=== PATIENT | female | born 1980 | race Hispanic/Latino ===

== ENCOUNTER 2018-03-18 20:25 | Observation (INO) | payer BC, OTHER ==
[2018-03-18 21:07] LABS: Bilirubin Small (Negative); Blood, Urine Trace (Negative); Glucose, Urine (Dipstick) Negative (Negative); Leukocyte Negative (Negative); Nitrite Negative (Negative); Protein, Urine (Dipstick) Trace mg/dL (Neg-Trace)
[2018-03-18 21:10] LABS: Clarity Hazy (Clear)
[2018-03-18 21:12] LABS: Bacteria/HPF Rare-Few HPF (None Seen); RBC/HPF 0-3 HPF (0-3)
[2018-03-18 21:13] LABS: Yeast-AUWi Flag 37.7 (0-25.0)
[2018-03-18 21:20] LABS: #Basophils 0.1 thou/uL (0.0-0.2); #Eosinphils 0.1 thou/uL (0.0-0.7); #Lymphocytes 2.2 thou/uL (1.20-3.40); #Monocytes 0.6 thou/uL (0.11-0.59); #Neutrophils 5.9 thou/uL (1.40-6.50); %Basophils 0.8 % (0.0-1.0); %Eosinophils 1.5 % (0.0-10.0); %Lymphocytes 24.4 % (21.0-51.0); %Monocytes 6.6 % (0.0-10.0); %Neutrophils 66.8 % (42.0-75.0); Hemoglobin 12.5 g/dL (12.0-16.0); Mean Corpuscular HGB CONC 34.8 g/dL (32.0-36.0); Mean Corpuscular Hemoglobin 30.3 pg (27.0-31.0); Mean Corpuscular Volume 87.2 fL (78.0-98.0); Platelet Count 311 thou/uL (130-400); RBC Distribution Width 11.2 % (11.5-14.5); Red Blood Cell (RBC) Count 4.13 mill/uL (4.20-5.40); White Blood Cell (WBC) Count 8.8 thou/uL (4.8-10.8)
[2018-03-18 21:21] LABS: Crystals/HPF None Seen HPF (Negative); Hyaline Casts/LPF 0-3 HYALINE CAST LPF (0-3 Hyaline); Yeast-All Forms None Seen HPF (None Seen)
[2018-03-18 21:41] LABS: ALT (SGPT) 14 U/L (8-55); AST (SGOT) 16 U/L (5-34); Alkaline Phosphatase 118 U/L (40-150); Anion Gap 13 mmol/L (10-20); BUN (Urea Nitrogen) 7 mg/dL (7.0-18.7); Bilirubin, Total 0.4 mg/dL (0.2-1.2); Calc. Creatinine Clearance 0 mL/min (70-130); Calcium 8.4 mg/dL (7.8-10.44); Carbon Dioxide 23 mmol/L (22-29); Chloride 104 mmol/L (98-107); Estimated GFR-MDRD Greater than 90; Globulin 3.3 g/dL (2.4-3.5); Glucose 113 mg/dL (70-105); Potassium 3.6 mmol/L (3.5-5.1); Protein, Total 7.3 g/dL (6.0-8.3); Sodium 136 mmol/L (136-145)
[2018-03-18 22:30] LABS: Pregnancy Test - Urine (BHCG) Negative (Negative); Pregu Control Background? CLEAR/WHITE (CLR/WHITE); Pregu Control Bar Appear? YES (CONTROL BAR)
--- NOTE | 2018-03-18 22:57 | ULT ---
GALLBLADDER ULTRASOUND: 03/18/18 HISTORY: Right upper quadrant pain. COMPARISON: None. TECHNIQUE: Utilizing a multihertz transducer, sonographic imaging of the right upper quadrant is performed in th e longitudinal and transverse plane. FINDINGS: There is increased echogenicity of the liver which may be due to hepatic steatosis or hepatocellular disease. Subsequent vascular hepatic masses and intrahepatic biliary dilatation is limited. Right hep atic lobe measures 16.2 cm. Suboptimal evaluation of the pancreas. Right kidney has a normal cortical echotexture. No hydronephrosis. Right kidney measures 4.7 x 4.0 x 9.9 cm. Common bile duct diameter is 0.5 cm. Gallbladder wall is thickened. There are multiple echogenic foci with shadowing in the lumen of the g allbladder. There is a positive Crowell's sign. No significant pericholecystic fluid. IMPRESSION: Sonographic evidence of cholecystitis and cholelithiasis. POS: FRITZ
[2018-03-18] MEDS ORDERED: Ondansetron HCl/PF 4 MG/2 ML Vial ONE (23:26)
[2018-03-18] MEDS ORDERED: Morphine 4 MG/ML VIAL ONE (23:26)
[2018-03-19] MEDS ORDERED: cefTRIAXone\\ROCEPHIN 1 GM VIAL ONE (00:04)
[2018-03-19] MEDS ORDERED: Morphine 4 MG/ML VIAL SLOW IVP PRN (01:18)
[2018-03-19] MEDS ORDERED: Ondansetron HCl/PF 4 MG/2 ML Vial IVP PRN ×2 (01:19→17:35)
[2018-03-19] MEDS ORDERED: Ondansetron ODT 4 MG TAB SL PRN (01:19)
[2018-03-19] MEDS ORDERED: Sodium Chloride 0.9% 1,000 ML IV SCH (01:30)
[2018-03-19] MEDS ORDERED: hydrALAZINE 20 MG/ML VIAL SLOW IVP PRN (06:59)
[2018-03-19] MEDS ORDERED: Morphine 4 MG/ML Carpuject IVP PRN (06:59)
[2018-03-19] MEDS ORDERED: Ondansetron ODT 8 MG TAB SL PRN (07:02)
[2018-03-19] MEDS ORDERED: Ketorolac Tromethamine 30 MG/ML VIAL IVP PRN (07:02)
[2018-03-19] MEDS ORDERED: Acetaminophen 1,000 MG in Premix Bag 1 BAG IVPB PRN (07:02)
[2018-03-19] MEDS ORDERED: Morphine 4 MG/ML VIAL IV PRN (07:15)
[2018-03-19] MEDS ORDERED: Acetaminophen 1,000 MG in Premix Bag 1 BAG IVPB SCH (07:15)
[2018-03-19] MEDS ORDERED: Ketorolac Tromethamine 30 MG/ML VIAL IVP SCH (07:15)
[2018-03-19] MEDS: Sodium Chloride 0.9% 1,000 ML IV SCH ×2 (07:21→10:36)
--- NOTE | 2018-03-19 07:37 | HP ---
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 In the emergency room, her white count was 8, hemoglobin 12. Basic metabolic profile, liver function tests are normal. Ul trasound obtained revealed multiple gallstones, common bile duct 5 mm, changes of cholecystitis noted . Positive sonographic Crowell sign. ALLERGIES: None. SOCIAL HISTORY: Tobacco none. Alcohol none. MEDICATIONS: None. PAST SURGICAL HISTORY: C-sections. PAST MEDICAL HISTORY: Noncontributory. REVIEW OF SYSTEMS: Ten point noncontributory. FAMILY HISTORY: Negative. PHYSICAL EXAMINATION: VITAL SIGNS: 202 pounds, 98 degrees, 84, 18, 113/65. HEENT: Unremarkable. Sclerae nonicteric. LUNGS: Clear to auscultation. CARDIAC: Regular rate and rhythm without murmur or gallop. ABDOMEN: Soft, tenderness in right upper quadrant with guarding in right upper quadrant, positive Mu rphy sign. EXTREMITIES: Unremarkable. No ankle edema. Palpable pedal pulses. Cranial nerves intact, neurolog ically intact. No focal deficits. LYMPH: No lymphadenopathy in neck, axilla or groins. SKIN: Nonjaundiced. Good turgor. ASSESSMENT AND PLAN: Cholecystitis and cholelithiasis. I have recommended laparoscopic video cholec ystectomy. Risks of infection, bleeding, visceral biliary injury discussed. Questions answered.
[2018-03-19] MEDS ORDERED: Scopolamine 1.5 mg/72 hour Patch TD SCH (09:00)
[2018-03-19] MEDS ORDERED: Lidocaine 1% PF 5 ML VIAL ONE (14:10)
[2018-03-19] MEDS ORDERED: Dexamethasone 20 MG/5 ML VIAL ONE (14:10)
[2018-03-19] MEDS ORDERED: Glycopyrrolate 0.2 MG/ML 5 ML SYRINGE ONE (14:10)
[2018-03-19] MEDS ORDERED: Ondansetron HCl/PF 4 MG/2 ML Vial ONE (14:10)
[2018-03-19] MEDS ORDERED: PROPOFOL 200 MG/20 ML VIAL ONE (14:10)
[2018-03-19] MEDS ORDERED: Ketorolac Tromethamine 30 MG/ML VIAL ONE (15:52)
[2018-03-19] MEDS ORDERED: Bupivacaine HCl 0.5%/Epinephrine 1:200,000/PF 30 ml Vial ONE (16:08)
[2018-03-19] MEDS ORDERED: Fentanyl 100 MCG/2 ML VIAL ONE (16:10)
[2018-03-19] MEDS ORDERED: Midazolam HCl 2 mg/2 ml Vial ONE (16:10)
[2018-03-19] MEDS ORDERED: Ibuprofen 600 MG TAB PO PRN (16:35)
[2018-03-19] MEDS ORDERED: traMADol HCl 50 MG TAB PO PRN ×2 (16:35)
[2018-03-19] MEDS ORDERED: Acetaminophen 500 MG TAB PO PRN (16:35)
[2018-03-19] MEDS ORDERED: Promethazine HCl 25 MG/ML VIAL IM PRN (17:35)
[2018-03-19] MEDS ORDERED: Promethazine HCl 25 MG/ML VIAL SLOW IVP PRN (17:35)
[2018-03-19] MEDS ORDERED: Enoxaparin Sodium 40 MG/0.4 ML SYRINGE SC SCH (21:00)
--- NOTE | 2018-03-19 23:55 | OP ---
DATE OF PROCEDURE: 03/19/2018 PREOPERATIVE DIAGNOSES: Acute cholecystitis, cholelithiasis. POSTOPERATIVE DIAGNOSES: Acute cholecystitis, cholelithiasis. PROCEDURE: Laparoscopic video cholecystectomy. SURGEON: Rudy Jones M.D. ANESTHESIA: General. Local of 0.5% Marcaine with epinephrine, 30 mL total volume used. FINDINGS: Acute cholecystitis, multiple large stones. PROCEDURE IN DETAIL: The patient was taken to the operating room under general anesthesia, abdomen w as prepared with ChloraPrep, draped in routine fashion. Local anesthetic infiltrated into the skin a nd subcutaneous tissue about each port site. Infraumbilical incision made and pneumoperitoneum to 15 mmHg obtained with the Veress needle, replacing with a 5 port and video laparoscope inserted. Right subxiphoid incision made and 11 port placed. Right subcostal incision made mid clavicular anterior axillary lines and 5 ports placed. Gallbladder was full of stones. Liver appeared to be normal. Fu ndus of gallbladder grasped and reflected cephalad. Infundibulum grasped and reflected laterally. C ystic artery and duct dissected free. Critical view obtained. Cystic artery and duct doubly clipped proximally, divided, and gallbladder dissected free from liver bed obtaining good hemostasis prior t o division of final peritoneal attachments. Gallbladder and contents removed and submitted to Pathol ogy. Multiple stones were retrieved and submitted. Good hemostasis ensured with the cautery. Irrig ant and pneumoperitoneum evacuated. All instruments removed and all skin incisions approximated with an interrupted subdermal 4-0 Monocryl and DermaGlue applied.
--- NOTE | 2018-03-20 02:16 | DIS ---
DATE OF ADMISSION: 03/18/2018 DATE OF DISCHARGE: 03/19/2018 DISCHARGE DIAGNOSIS: Acute chronic cholecystitis. PROCEDURE: Laparoscopic video cholecystectomy. HISTORY: A 37-year-old female with history of biliary colic, presents with intolerable episode, pres ented to the emergency room. Ultrasound verifying gallstones, normal liver function tests. Received intravenous antibiotics overnight, taken to the operating room for laparoscopic cholecystectomy afte r which she was discharged home. DISCHARGE INSTRUCTIONS: Follow up in my office in 2-3 weeks. Diet and activity as tolerated. No li fting restrictions. Sent home with tramadol prescription #22 refills, and instructed to take Tylenol and Motrin for pain otherwise.
[2018-03-20 07:54] VITALS: BP 127/86; TEMP 98.3
== END 2018-03-20 07:54 | disposition home or self-care (01) ==
LOC: ERS 20:25 → SURG B 23:49
PROVIDERS: ADMIT Specialist; ATTEND Specialist
PROC: 0FT44ZZ Resection of Gallbladder, Percutaneous Endoscopic Approach (ICD-10-PCS; principal; 2018-03-19)
DX: K80.12 Calculus of gallbladder with acute and chronic cholecystitis without obstruction (principal)
CPT/HCPCS: 36415; 76705; 80053; 81003; 81015; 81025; 83690; 85025; 88304; 96365; 96372; 96375; 96376; G0378; J0131; J0670; J0696; J1100; J1650; J1885; J1956; J2001; J2250; J2270; J2405; J2704; J3010

== ENCOUNTER 2018-12-16 10:05 | Emergency (ER) | payer BC ==
[2018-12-16] MEDS ORDERED: ISOVUE-370 76%-LOCM 1 ML ONE (10:26)
[2018-12-16] MEDS ORDERED: Dicyclomine 20 MG TAB ONE (11:34)
[2018-12-16] MEDS ORDERED: Ketorolac Tromethamine 30 MG/ML VIAL ONE (11:34)
[2018-12-16] MEDS ORDERED: Ondansetron PF 4 MG/2 ML Vial ONE ×2 (11:34→13:13)
[2018-12-16 11:59] LABS: #Eosinphils 0.1 thou/uL (0.0-0.7); #Lymphocytes 0.9 thou/uL (1.20-3.40); #Monocytes 0.7 thou/uL (0.11-0.59); #Neutrophils 5.9 thou/uL (1.40-6.50); %Basophils 0.1 % (0.0-1.0); %Eosinophils 0.8 % (0.0-10.0); %Lymphocytes 12.3 % (21.0-51.0); %Monocytes 9.7 % (0.0-10.0); %Neutrophils 77.1 % (42.0-75.0); Hemoglobin 13.7 g/dL (12.0-16.0); Mean Corpuscular HGB CONC 33.8 g/dL (32.0-36.0); Mean Corpuscular Hemoglobin 29.9 pg (27.0-31.0); Mean Corpuscular Volume 88.2 fL (78.0-98.0); Mean Platelet Volume 6.7 fL (7.4-10.4); Platelet Count 295 thou/uL (130-400); RBC Distribution Width 11.4 % (11.5-14.5); Red Blood Cell (RBC) Count 4.59 mill/uL (4.20-5.40); White Blood Cell (WBC) Count 7.7 thou/uL (4.8-10.8)
[2018-12-16 12:26] LABS: ALT (SGPT) 31 U/L (8-55); AST (SGOT) 18 U/L (5-34); Albumin 4.5 g/dL (3.5-5.0); Alkaline Phosphatase 131 U/L (40-150); Anion Gap 13 mmol/L (10-20); BUN (Urea Nitrogen) 11 mg/dL (7.0-18.7); Bilirubin, Total 0.5 mg/dL (0.2-1.2); Calc. Creatinine Clearance 0 mL/min (70-130); Calcium 9.1 mg/dL (7.8-10.44); Carbon Dioxide 22 mmol/L (22-29); Chloride 104 mmol/L (98-107); Estimated GFR-MDRD 86; Globulin 3.8 g/dL (2.4-3.5); Glucose 108 mg/dL (70-105); Lipase 9 U/L (8-78); Potassium 3.8 mmol/L (3.5-5.1); Protein, Total 8.3 g/dL (6.0-8.3); Sodium 135 mmol/L (136-145)
[2018-12-16 12:36] LABS: Bilirubin Small (Negative); Blood, Urine Trace (Negative); Clarity CLOUDY (Clear); Glucose, Urine (Dipstick) Negative (Negative); Leukocyte Moderate (Negative); Nitrite Negative (Negative); Protein, Urine (Dipstick) 30 mg/dL (Neg-Trace); Specific Gravity, Urine 1.038 (1.002-1.036); Urobilinogen 0.2 mg/dL (0.2-1.0)
[2018-12-16 12:37] LABS: Bacteria/HPF 1+ HPF (None Seen)
[2018-12-16 12:44] LABS: Pregnancy Test - Urine (BHCG) Negative (Negative); Pregu Control Background? CLEAR/WHITE (CLR/WHITE); Pregu Control Bar Appear? YES (CONTROL BAR); Specific Gravity 1.038 (1.002-1.036)
[2018-12-16 13:04] LABS: Pathc Cast-AUWi Flag 2.99 (0-2.49)
[2018-12-16 13:12] LABS: Crystals/HPF 1+ AMORPH URATES HPF (Negative); Hyaline Casts/LPF 0-3 HYALINE CAST LPF (0-3 Hyaline); Other Casts/LPF None Seen LPF (0-3 Hyaline)
--- NOTE | 2018-12-16 13:38 | CT ---
CT ABDOMEN AND PELVIS WITH IV CONTRAST: HISTORY: Abdominal pain, nausea, vomiting, and diarrhea. FINDINGS: There are dependent changes in the lung bases. The patient is post cholecystectomy. There is minima l prominence of the intrahepatic ducts, likely due to reservoir effect. There are no hepatic masses seen. The spleen, pancreas, adrenal glands, and kidneys are normal. No free air, free fluid, or lym phadenopathy is seen in the abdomen or pelvis. Calcified appendicoliths are present without evidence of appendicitis. There is fluid in the loops o f small and large bowel, including the rectum. The small bowel loops are not abnormally dilated. Ut erus and ovaries are present. The abdominal aorta is of normal caliber without dissection or aneurys m. There are mild degenerative changes in the spine. IMPRESSION: 1. No evidence of appendicitis. 2. Fluid in loops of bowel without evidence of high-grade obstruction. POS: TPC
== END 2018-12-16 14:03 | disposition home or self-care (01) ==
LOC: ERS 10:05
DX: K52.9 Noninfective gastroenteritis and colitis, unspecified (principal); R11.2 Nausea with vomiting, unspecified
CPT/HCPCS: 74177; 80053; 81003; 81015; 81025; 83690; 85025; 96361; 96374; 96375; 96376; J1885; J2405; Q9966

== ENCOUNTER 2019-07-07 13:22 | Outpatient (CLI) | payer BC ==
--- NOTE | 2019-07-07 14:27 | ULT ---
EXAM: OB ultrasound COMPARISON: None HISTORY: female. Evaluate size, dates, and anatomy. TECHNIQUE: Multiplanar grayscale and color Doppler images were obtained in a transabdominal ult rasound. FINDINGS: There is a single live intrauterine with heart rate of 144 bpm. A survey wa s performed which is unremarkable. The head, intracranial structures, heart, stomach, kidneys, umbilical cord, umbilical cord insertion, spine, face, and extremities were evaluated and were unrema rkable. Estimated weight is 364 g. Average age of the fetus based off today's examination is 20 weeks 6 days. BPD 4.96 cm -- 21 weeks 1 day HC 18.22 cm -- 20 weeks 5 days AC 15.67 cm -- 20 weeks 6 days FL 3.29 cm -- 20 weeks 2 days The placenta is anterior in location without focal abnormality. ROHITH is 17.38 cm which is normal. The cervix is normal in length. There is no evidence of placenta previa. There appears to be a 3.7 cm fibroid in the anterior aspect of the uterus. IMPRESSION: Single live intrauterine with estimated age of 20 weeks 6 days.
== END 2019-07-07 13:23 | disposition home or self-care (01) ==
LOC: BICULT 13:22
PROVIDERS: ATTEND Family Medicine
DX: O09.522 Supervision of elderly multigravida, second trimester (principal); Z3A.20 20 weeks gestation of pregnancy
CPT/HCPCS: 76805

== ENCOUNTER 2019-11-09 05:27 | Inpatient (IN) | payer BC ==
[2019-11-09] MEDS ORDERED: Promethazine HCl 25 MG/ML VIAL IM PRN ×2 (05:59→07:16)
[2019-11-09] MEDS ORDERED: Ondansetron PF 4 MG/2 ML Vial IVP PRN ×3 (05:59→10:40)
[2019-11-09] MEDS ORDERED: CEFAZOLIN 2 GM in Premix Bag 1 BAG IVPB SCH (05:59)
[2019-11-09] MEDS ORDERED: hydrALAZINE 20 MG/ML VIAL SLOW IVP PRN ×2 (05:59→10:40)
[2019-11-09] MEDS ORDERED: Bicitra 30 ML UDCUP PO SCH (05:59)
[2019-11-09] MEDS: Lactated Ringer's 1,000 ML IV SCH ×2 (06:10→06:59)
[2019-11-09 06:19] VITALS: BMI 37.4
[2019-11-09 06:29] LABS: Hemoglobin 11.7 g/dL (12.0-16.0); Mean Corpuscular HGB CONC 33.9 g/dL (32.0-36.0); Mean Corpuscular Hemoglobin 29.9 pg (27.0-31.0); Mean Corpuscular Volume 88.1 fL (78.0-98.0); Mean Platelet Volume 7.6 fL (7.4-10.4); Platelet Count 252 thou/uL (130-400); RBC Distribution Width 13.2 % (11.5-14.5); Red Blood Cell (RBC) Count 3.91 mill/uL (4.20-5.40); White Blood Cell (WBC) Count 10.9 thou/uL (4.8-10.8)
[2019-11-09] MEDS ORDERED: MORPHINE 5 MG/10 ML PF VIAL ONE (06:55)
[2019-11-09] MEDS ORDERED: HYDROmorphone 2 MG/ML VIAL SLOW IVP PRN (07:15)
[2019-11-09] MEDS ORDERED: L&D-Morphine 4 MG/ML VIAL SLOW IVP PRN (07:15)
[2019-11-09] MEDS ORDERED: Ondansetron HCl/PF 4 MG/2 ML Vial IVP PRN (07:15)
[2019-11-09] MEDS ORDERED: Ketorolac Tromethamine 30 MG/ML VIAL IVP SCH (07:15)
[2019-11-09] MEDS ORDERED: Meperidine HCl/PF 25 MG/ML VIAL SLOW IVP PRN (07:15)
[2019-11-09] MEDS ORDERED: Ketorolac Tromethamine 30 MG/ML VIAL IVP PRN (07:16)
[2019-11-09] MEDS ORDERED: Naloxone HCl 0.4 mg/ml Vial IVP PRN ×2 (07:16)
[2019-11-09] MEDS ORDERED: diphenhydrAMINE 50 MG/ML VIAL IVP PRN (07:16)
[2019-11-09] MEDS ORDERED: Promethazine HCl 25 MG SUPP PR PRN (07:16)
[2019-11-09] MEDS ORDERED: Naloxone HCl 0.4 mg/ml Vial IV PRN (07:16)
[2019-11-09] MEDS ORDERED: Communication Order-Pharmacy FS SCH (07:30)
[2019-11-09 07:34] LABS: Syphilis Antibody Nonreactive (Nonreactive); Syphilis Antibody Index 0.04 S/CO (<1.00 Non-Reactive)
[2019-11-09 07:35] LABS: HBSAg Index 0.17 S/CO (0-0.99); Hep B Surf Ag Non-Reactive S/CO (NonReactive)
[2019-11-09] MEDS ORDERED: Ketorolac Tromethamine 30 MG/ML VIAL ONE (07:36)
[2019-11-09] MEDS ORDERED: Ondansetron PF 4 MG/2 ML Vial ONE (07:36)
[2019-11-09] MEDS ORDERED: PHENYLEPHRINE-NS 100 MCG/ML 10 ML SYRINGE ONE (07:36)
[2019-11-09] MEDS ORDERED: NS / Oxytocin 40 units/1000ml 1,000 ML ONE (10:01)
[2019-11-09] MEDS ORDERED: Bisacodyl 10 MG SUPP PR PRN (10:40)
[2019-11-09] MEDS ORDERED: Meperidine HCl/PF 25 MG/ML VIAL IM PRN (10:40)
[2019-11-09] MEDS ORDERED: Lanolin Ointment 7 GM TUBE TOP PRN (10:40)
[2019-11-09] MEDS ORDERED: Adacel (T-DAP) 0.5 ML SYRINGE IM ONE (10:40)
[2019-11-09] MEDS ORDERED: HYDROcodone/Acetaminophen 5/325 mg Tablet PO PRN (10:40)
[2019-11-09] MEDS ORDERED: diphenhydrAMINE 25 MG CAP PO PRN (10:40)
--- NOTE | 2019-11-09 15:02 | OP ---
DATE OF PROCEDURE: 11/09/2019 GRINDER OPERATOR AUTOMATIC SURGEON: Vani Clark MD. PROCEDURE PERFORMED: Repeat low-transverse section. PREOPERATIVE DIAGNOSES: 1. Term intrauterine . 2. Previous . 3. History of preeclampsia in prior , currently . POSTOPERATIVE DIAGNOSES: 1. Term intrauterine , delivered. 2. History of previous . 3. History of preeclampsia in prior . ANESTHESIA: Spinal. INDICATIONS: The patient is a 39-year-old, G2, P0-1-0-1 female at 39 weeks gestation, who presents for repeat scheduled . PROCEDURE IN DETAIL: After risks, benefits, and alternatives were explained to the patient, she gave informed consent. Preoperative antibiotics included cefazolin 2 g IV. The patient was taken to the operating room. Spinal anesthesia was initiated. She was placed in a supine position with a left tilt and prepped and draped in the usual sterile fashion. A Pfannenstiel incision was made with a scalpel and carried down to the level of the fascia, which was sharply nicked. The fascial cut was extended bilaterally with Gautam scissors. Inferior and superior edges of the cut fascial edges were elevated with Adri clamps. The underlying rectus muscles were sharply and bluntly dissected free. The recti were divided digitally and retracted manually. The peritoneum was then entered bluntly and retracted manually. Bladder blade was placed. A low-transverse score was made with scalpel and the uterus was entered bluntly in the midline after rupture of the amniotic sac upon which clear fluid was seen. The hysterotomy was then extended manually. The infant was noted to be vertex and was easily delivered by fundal pressure. Cord was clamped and cut and grossly normal female was handed to waiting nurse. Cord blood was obtained. Placenta was manually extracted following an umbilical cord avulsion, but was found to be intact upon extraction and discarded. The uterus was then externalized and the endometrium was curetted with a dry lap. The bladder blade was replaced and the uterus was closed with a running locking #1 Monocryl suture followed by 3 interrupted [id number] sutures with 0 Vicryl in order to achieve hemostasis along the hysterotomy. Following this, hemostasis of the hysterotomy was noted. The abdomen was then irrigated with saline and suctioned free of clots. The uterus was internalized and the hysterotomy was again noted to be hemostatic. However upon internalization a small bleeding defect was noted in the right lower border of the hysterotomy just superior to the upper edge of the bladder. This was repaired with a running nonlocking 0 Vicryl suture. Following this repair, hemostasis was again noted. The peritoneum was closed with a running nonlocking 3-0 Vicryl suture. Following this, the fascia was closed with a running nonlocking 0 PDS suture. The subcutaneous layer was then closed using 4 interrupted 3-0 Vicryl sutures. The subcutaneous tissue was then irrigated and free bleeders were cauterized using electrocautery. The skin was then approximated with familia and a pressure dressing was placed. All counts were correct. The patient tolerated the procedure well and was taken to the recovery room in stable condition. ESTIMATED BLOOD LOSS: 495 mL. COMPLICATIONS: None. SPECIMENS: Cord blood sent to lab for blood type. FINDINGS: 1. Grossly normal female with Apgars of 8 and 9. 2. Grossly normal placenta with 3 vessel, but avulsed cord, discarded. DRAINS: Francis to gravity draining clear urine. Job ID: [id number] [facility]
[2019-11-09] MEDS: Ketorolac Tromethamine 30 MG/ML VIAL IVP SCH ×2 (15:40→22:55)
[2019-11-09] MEDS: Docusate Calcium (SURFAK) 240 MG CAP PO SCH (22:55)
[2019-11-09] MEDS: Simethicone Chewable 80 MG TAB PO PRN (22:55)
[2019-11-09] MEDS: Ferrous Sulfate 325 MG TAB PO SCH (23:05)
[2019-11-10] MEDS: Ketorolac Tromethamine 30 MG/ML VIAL IVP SCH (04:55)
[2019-11-10] MEDS: HYDROcodone/Acetaminophen 5/325 mg Tablet PO PRN ×4 (04:56→21:07)
[2019-11-10] MEDS: Simethicone Chewable 80 MG TAB PO PRN (04:57)
[2019-11-10 06:18] LABS: Hemoglobin 10.4 g/dL (12.0-16.0); Mean Corpuscular HGB CONC 33.3 g/dL (32.0-36.0); Mean Corpuscular Hemoglobin 29.9 pg (27.0-31.0); Mean Corpuscular Volume 89.8 fL (78.0-98.0); Mean Platelet Volume 7.5 fL (7.4-10.4); Platelet Count 197 thou/uL (130-400); RBC Distribution Width 13.2 % (11.5-14.5); Red Blood Cell (RBC) Count 3.48 mill/uL (4.20-5.40); White Blood Cell (WBC) Count 11.9 thou/uL (4.8-10.8)
[2019-11-10] MEDS: Prenatal Vitamin 1 TAB PO SCH (09:30)
[2019-11-10] MEDS: Docusate Calcium (SURFAK) 240 MG CAP PO SCH ×2 (09:31→21:05)
[2019-11-10] MEDS: Ibuprofen 800 MG TAB PO SCH ×2 (15:09→21:06)
[2019-11-10] MEDS: Ferrous Sulfate 325 MG TAB PO SCH ×2 (15:54→20:29)
[2019-11-11] MEDS: HYDROcodone/Acetaminophen 5/325 mg Tablet PO PRN (04:50)
[2019-11-11] MEDS: Ibuprofen 800 MG TAB PO SCH ×3 (05:56→21:45)
[2019-11-11] MEDS: Simethicone Chewable 80 MG TAB PO PRN (09:36)
[2019-11-11] MEDS: Docusate Calcium (SURFAK) 240 MG CAP PO SCH ×2 (09:36→21:46)
[2019-11-11] MEDS: Ferrous Sulfate 325 MG TAB PO SCH ×2 (09:36→19:30)
[2019-11-11] MEDS: Prenatal Vitamin 1 TAB PO SCH (09:36)
[2019-11-12] MEDS: Ibuprofen 800 MG TAB PO SCH ×2 (05:57→14:37)
[2019-11-12 08:11] VITALS: BP 122/69; TEMP 98.6
[2019-11-12] MEDS: Prenatal Vitamin 1 TAB PO SCH (09:33)
[2019-11-12] MEDS: Ferrous Sulfate 325 MG TAB PO SCH (09:33)
[2019-11-12] MEDS: Docusate Calcium (SURFAK) 240 MG CAP PO SCH (09:34)
[2019-11-12] MEDS: Simethicone Chewable 80 MG TAB PO PRN (09:34)
== END 2019-11-12 18:40 | disposition home or self-care (01) | DRG 788 ==
LOC: L&D 05:27 → 3SW 11:21
PROVIDERS: ADMIT Family Medicine; ATTEND Family Medicine
PROC: 10D00Z1 Extraction of Products of Conception, Low, Open Approach (ICD-10-PCS; principal; 2019-11-09)
DX: O34.211 Maternal care for low transverse scar from previous cesarean delivery (principal); Z3A.39 39 weeks gestation of pregnancy; Z37.0 Single live birth
CPT/HCPCS: 36415; 51702; 85027; 86780; 86850; 86900; 86901; 87340; J0690; J1200; J1885; J2274; J2405